=== PATIENT | male | born 1950 | race Caucasian/White ===

== ENCOUNTER 2023-06-18 10:32 | Outpatient (CLI) | payer MEDICARE, BC | END 2023-06-18 10:33 | disposition home or self-care (01) | LOC: CSHCP 10:32 | PROVIDERS: ATTEND Radiology Radiation Oncology | DX: C34.11 Malignant neoplasm of upper lobe, right bronchus or lung (principal); J44.9 Chronic obstructive pulmonary disease, unspecified | CPT/HCPCS: 36415; 80061; 94010; 94726; 94729; 94760 ==